=== PATIENT | female | born 1980 | race African-American/Black ===

== ENCOUNTER 2018-10-20 10:55 | Observation (INO) | payer BC, OTHER ==
--- NOTE | 2018-10-20 11:23 | ER Document Report ---
ED Medical Screen (RME) - General Chief Complaint: Abnormal Lab Results Stated Complaint: ABNORMAL LABS Time Seen by Provider: 10/20/18 11:19 Primary Care Provider: MEMO PALACIOS MD [Primary Care Provider] - Follow up as needed Mode of Arrival: Ambulatory Information source: Patient Notes: Patient is a 38-year-old female with past medical history of anemia who presents to the emergency department with complaints of abnormal labs. Patient reports she had labs drawn on Wednesday [facility], states they called her this morning with a low hemoglobin. She states that the hemoglobin level she believes was 6.8. Patient reports complaints of fatigue, dizziness and shortness of breath. Exam: Patient alert, awake, no distress noted. Lung sounds clear to auscultation bilaterally. I have greeted and performed a rapid initial assessment of this patient. A comprehensive ED assessment and evaluation of the patient, analysis of test results and completion of the medical decision making process will be conducted by additional ED providers. Dictation of this chart was performed using voice recognition software; therefore, there may be some unintended grammatical errors. TRAVEL OUTSIDE OF THE [place] IN LAST 30 DAYS: No - Related Data Allergies/Adverse Reactions: acetaminophen [From Vicodin] Allergy (Verified 10/20/18 10:56) cephalexin [From Keflex] Allergy (Verified 10/20/18 10:56) hydrocodone [From Vicodin] Allergy (Verified 10/20/18 10:56) Physical Exam - Vital signs Vitals: Temp Pulse Resp BP Pulse Ox 98.7 F 100 16 151/82 H 100 10/20/18 11:04 10/20/18 11:04 10/20/18 11:04 10/20/18 11:04 10/20/18 11:04 Course - Vital Signs Vital signs: Temp Pulse Resp BP Pulse Ox 98.7 F 100 16 151/82 H 100 10/20/18 11:04 10/20/18 11:04 10/20/18 11:04 10/20/18 11:04 10/20/18 11:04 Doctor's Discharge - Discharge Referrals: MEMO PALACIOS MD [Primary Care Provider] - Follow up as needed
[2018-10-20 11:59] LABS: ABSOLUTE BASOPHILS # (AUTO) 0.1 10^3/uL (0.0-0.2); ABSOLUTE EOSINOPHILS # (AUTO) 0.2 10^3/uL (0.0-0.6); ABSOLUTE LYMPHOCYTES (AUTO) 1.7 10^3/uL (0.5-4.7); ABSOLUTE MONOCYTES (AUTO) 0.4 10^3/uL (0.1-1.4); ABSOLUTE NEUT (AUTO) 6.8 10^3/uL (1.7-8.2); BASOPHILS % (AUTO) 0.6 % (0-2); EOSINOPHILS % (AUTO) 1.7 % (0-6); HEMATOCRIT 22.2 % (36.0-47.0); LYMPHOCYTES % (AUTO) 18.8 % (13-45); MEAN CORPUSCULAR HEMOGLOBIN 17.1 pg (27.0-33.4); MEAN CORPUSCULAR HGB CONC 28.4 g/dL (32.0-36.0); MONOCYTES % (AUTO) 4.2 % (3-13); PLATELET COUNT 388 10^3/uL (150-450); RED BLOOD COUNT 3.69 10^6/uL (3.72-5.28); RED CELL DISTRIBUTION WIDTH 20.4 % (11.5-14.0); SEGMENTED NEUTROPHILS % (AUTO) 74.7 % (42-78); TOTAL CELLS COUNTED % (AUTO) 100 %; WHITE BLOOD COUNT 9.1 10^3/uL (4.0-10.5)
[2018-10-20 12:13] LABS: MEAN CORPUSCULAR VOLUME 60 fl (80-97)
[2018-10-20 12:31] LABS: ALANINE AMINOTRANSFERASE 26 U/L (9-52); ALBUMIN 3.7 g/dL (3.5-5.0); ALKALINE PHOSPHATASE 100 U/L (38-126); ANION GAP 11 (5-19); ASPARTATE AMINO TRANSFERASE 16 U/L (14-36); BILIRUBIN,DIRECT 0.3 mg/dL (0.0-0.4); BILIRUBIN,TOTAL 0.3 mg/dL (0.2-1.3); BLOOD UREA NITROGEN 14 mg/dL (7-20); CALCIUM 8.8 mg/dL (8.4-10.2); CARBON DIOXIDE 24 mmol/L (22-30); CHLORIDE 105 mmol/L (98-107); GLUCOSE 148 mg/dL (75-110); POTASSIUM 4.1 mmol/L (3.6-5.0); SODIUM 139.6 mmol/L (137-145); TOTAL PROTEIN 7.1 g/dL (6.3-8.2)
[2018-10-20 12:32] LABS: ANISOCYTOSIS 2+; HYPOCHROMASIA 3+; OVALOCYTES 1+; PLATELET COMMENT ADEQUATE; POIKILOCYTOSIS 1+; POLYCHROMASIA SLIGHT; TEAR DROP CELLS SLIGHT
[2018-10-20 12:34] LABS: HEMOGLOBIN 6.3 g/dL (12.0-15.5)
[2018-10-20] MEDS ORDERED: NORMAL SALINE 250 ML IV PRN ×4 (12:36→18:46)
--- NOTE | 2018-10-20 13:00 | ER Document Report ---
Doctor's Note Notes: 10/20/18 12:59 Nursing staff called and Made me aware of hemoglobin of 6.3. Patient has still not been seen by provider in the back, orders placed for transfusion of 2 units of packed red cells.
--- NOTE | 2018-10-20 13:43 | ER Document Report ---
ED General - General Chief Complaint: Abnormal Lab Results Stated Complaint: ABNORMAL LABS Time Seen by Provider: 10/20/18 11:19 Mode of Arrival: Ambulatory Notes: 38-year-old female with iron deficiency anemia, transfusions intermittently, from [place] with no primary care here presents TRAVEL OUTSIDE OF THE [place] IN LAST 30 DAYS: No - Related Data Allergies/Adverse Reactions: acetaminophen [From Vicodin] Allergy (Verified 10/20/18 10:56) cephalexin [From Keflex] Allergy (Verified 10/20/18 10:56) hydrocodone [From Vicodin] Allergy (Verified 10/20/18 10:56) Past Medical History - General Information source: Patient - Social History Smoking Status: Never Smoker Chew tobacco use (# tins/day): No Frequency of alcohol use: None Drug Abuse: None Family History: None Patient has suicidal ideation: No Patient has homicidal ideation: No Endocrine Medical History: Reports: Hx Diabetes Mellitus Type 2 Renal/ Medical History: Denies: Hx Peritoneal Dialysis Physical Exam - Vital signs Vitals: Temp Pulse Resp BP Pulse Ox 98.7 F 100 16 151/82 H 100 10/20/18 11:04 10/20/18 11:04 10/20/18 11:04 10/20/18 11:04 10/20/18 11:04 Course - Re-evaluation Re-evalutation: 10/20/18 21:21 Patient presents with symptomatic anemia. Hemoglobin is below threshold for transfusion and she is having symptoms. I ordered her 2 units of blood. I discussed with hospitalist who initially agreed to admit but then decided on his own he will evaluate the patient, recheck her after her transfusions and discharge her from the emergency department. - Vital Signs Vital signs: Temp Pulse Resp BP Pulse Ox 98.7 F 96 20 156/93 H 99 10/20/18 19:26 10/20/18 17:00 10/20/18 19:26 10/20/18 19:26 10/20/18 19:26 - Laboratory Result Diagrams: 10/20/18 18:02 10/20/18 11:44 Laboratory results interpreted by me: 10/20/18 10/20/18 10/20/18 11:44 11:44 11:44 RBC 3.69 L Hgb 6.3 L Hct 22.2 L MCV 60 L MCH 17.1 L MCHC 28.4 L RDW 20.4 H Glucose 148 H Crossmatch See Detail Discharge - Discharge Clinical Impression: Symptomatic anemia Condition: Fair Disposition: ADMITTED OBSERVATION Admitting Provider: Isac (Hospitalist) Unit Admitted: Medical Floor
[2018-10-20] MEDS ORDERED: ACETAMINOPHEN 325 MG TABLET PO PRN (14:38)
[2018-10-20] MEDS ORDERED: ONDANSETRON HCL INJ/PF 4 MG/2 ML SDV IV PRN (14:38)
--- NOTE | 2018-10-20 14:38 | H&P/Discharge Summary ---
Discharge Summary Admission Date/PCP: 10/20/2018 Discharge Date: 10/20/18 Resuscitation Status: Full Code - Discharge Diagnosis (1) Symptomatic anemia Is this a current diagnosis for this admission?: Yes Summary: 38-year-old female with history of chronic symptomatic anemia with history of multiple blood transfusions came to the emergency room today with complaints of increasing shortness of breath for the last few days associated with the chest tightness. Patient is given the history of uterine cancer follows with with oncologist in [place] she does not want to see anybody during this hospital stay for this problem and she is also given the history of heavy periods. She does expressing desire to go home after blood transfusions. Discussed the plan with the ER physician Dr. Yoan Anthony he agreed with the plan. Plan is patient is going to receive 2 units of PRBC in the ER and will check 2 hours posttransfusion CBC if it is reasonable will discharge her today. Allergies/Adverse Reactions: acetaminophen [From Vicodin] Allergy (Verified 10/20/18 10:56) cephalexin [From Keflex] Allergy (Verified 10/20/18 10:56) hydrocodone [From Vicodin] Allergy (Verified 10/20/18 10:56) History of Present Illness Admission Date/PCP: 10/20/2018 Patient complains of: Shortness of breath associated with the dizziness. History of Present Illness: TICO PEDRO is a 38 year old female history of diabetes mellitus, obesity, uterine cancer, multiple blood transfusions, removal of the right ovarian cyst a few years ago followed by necrotizing fasciitis with multiple abdominal surgeries came to the emergency room with complaints of increasing shortness of breath and dizziness. She went to the [facility] [place] and they did a hemoglobin found it was low sent to the ER for further evaluation in the emergency room hemoglobin is 6.4. Patient expressing desire to go home after blood transfusions today. Past Medical History Endocrine Medical History: Reports: Diabetes Mellitus Type 2 Malignancy Medical History: Reports: Other - Uterine cancer Hematology: Reports: Anemia Past Surgical History Past Surgical History: Reports: Other - Removal of the right ovarian cyst, history of miscarriage s/p fasitis Social History Information Source: Patient Smoking Status: Never Smoker Frequency of Alcohol Use: Rare Hx Recreational Drug Use: No - Advance Directive Resuscitation Status: Full Code Family History Parental Family History Reviewed: Yes - Family history of diabetes mellitus Children Family History Reviewed: Yes Sibling(s) Family History Reviewed.: Yes Review of Systems Constitutional: PRESENT: headache(s), other - Dizziness. ABSENT: fever(s) Eyes: ABSENT: visual disturbances Ears: ABSENT: hearing changes Nose, Mouth, and Throat: ABSENT: sore throat Cardiovascular: PRESENT: palpitations Respiratory: ABSENT: cough, hemoptysis Gastrointestinal: ABSENT: diarrhea, dysphagia, heartburn, hematemesis, h ematochezia Genitourinary: PRESENT: other - Complaining of a B. Neurological: PRESENT: dizziness. ABSENT: abnormal gait, abnormal speech, confusion, focal weakness, syncope Psychiatric: ABSENT: anxiety, depression, homidical ideation, suicidal ideation Physical Exam Vital Signs: Temp Pulse Resp BP Pulse Ox 98.7 F 100 16 151/82 H 100 10/20/18 11:04 10/20/18 11:04 10/20/18 11:04 10/20/18 11:04 10/20/18 13:01 Intake & Output 10/19/18 10/20/18 10/21/18 06:59 06:59 06:59 Weight 124.9 kg General appearance: PRESENT: no acute distress, obese Head exam: PRESENT: atraumatic Eye exam: PRESENT: PERRLA Neck exam: ABSENT: carotid bruit, JVD, lymphadenopathy, thyromegaly Respiratory exam: PRESENT: clear to auscultation nestor. ABSENT: rales, rhonchi, wheezes Cardiovascular exam: PRESENT: tachycardia GI/Abdominal exam: PRESENT: normal bowel sounds, soft. ABSENT: distended, guarding, mass, organolmegaly, rebound, tenderness Extremities exam: PRESENT: full ROM. ABSENT: calf tenderness, clubbing, pedal edema Neurological exam: PRESENT: alert, awake, oriented to person, oriented to place, oriented to time, oriented to situation, CN II-XII grossly intact. ABSENT: motor sensory deficit Psychiatric exam: PRESENT: appropriate affect, normal mood. ABSENT: homicidal ideation, suicidal ideation Results Laboratory Results: 10/20/18 11:44 10/20/18 11:44 10/20/18 10/20/18 10/20/18 11:44 11:44 11:44 WBC 9.1 RBC 3.69 L Hgb 6.3 L Hct 22.2 L MCV 60 L MCH 17.1 L MCHC 28.4 L RDW 20.4 H Plt Count 388 Seg Neutrophils % 74.7 Lymphocytes % 18.8 Monocytes % 4.2 Eosinophils % 1.7 Basophils % 0.6 Absolute Neutrophils 6.8 Absolute Lymphocytes 1.7 Absolute Monocytes 0.4 Absolute Eosinophils 0.2 Absolute Basophils 0.1 Sodium 139.6 Potassium 4.1 Chloride 105 Carbon Dioxide 24 Anion Gap 11 BUN 14 Creatinine 0.81 Est GFR ( Amer) > 60 Est GFR (Non-Af Amer) > 60 Glucose 148 H Calcium 8.8 Total Bilirubin 0.3 AST 16 ALT 26 Alkaline Phosphatase 100 Total Protein 7.1 Albumin 3.7 Blood Type O POSITIVE Antibody Screen NEGATIVE Qualifiers - * PATIENT BEING DISCHARGED WITH ANY OF THE FOLLOWING DIAGNOSIS: No VTE patient discharged on overlapping Therapy?: No Assessment & Plan - Time Time Spent: 50 to 70 Minutes Medications reviewed and adjusted accordingly: Yes Anticipated dischagre: Home
[2018-10-20 18:28] LABS: ABSOLUTE EOSINOPHILS # (AUTO) 0.1 10^3/uL (0.0-0.6); ABSOLUTE LYMPHOCYTES (AUTO) 2.2 10^3/uL (0.5-4.7); ABSOLUTE MONOCYTES (AUTO) 0.9 10^3/uL (0.1-1.4); ABSOLUTE NEUT (AUTO) 8.4 10^3/uL (1.7-8.2); BASOPHILS % (AUTO) 0.2 % (0-2); HEMATOCRIT 25.2 % (36.0-47.0); LYMPHOCYTES % (AUTO) 18.8 % (13-45); MEAN CORPUSCULAR HEMOGLOBIN 19.3 pg (27.0-33.4); MEAN CORPUSCULAR HGB CONC 30.1 g/dL (32.0-36.0); MONOCYTES % (AUTO) 7.8 % (3-13); PLATELET COUNT 359 10^3/uL (150-450); RED BLOOD COUNT 3.94 10^6/uL (3.72-5.28); RED CELL DISTRIBUTION WIDTH 26.4 % (11.5-14.0); SEGMENTED NEUTROPHILS % (AUTO) 72.2 % (42-78); TOTAL CELLS COUNTED % (AUTO) 100 %; WHITE BLOOD COUNT 11.6 10^3/uL (4.0-10.5)
[2018-10-20 18:39] LABS: MEAN CORPUSCULAR VOLUME 64 fl (80-97)
[2018-10-20 18:42] LABS: ANISOCYTOSIS 3+; HYPOCHROMASIA 2+; PLATELET COMMENT ADEQUATE; POIKILOCYTOSIS 1+; TOXIC GRANULATION SLIGHT
[2018-10-20 18:44] LABS: HEMOGLOBIN 7.6 g/dL (12.0-15.5)
[2018-10-20] MEDS: FAMOTIDINE 20 MG TABLET PO SCH ×2 (19:21→23:19)
[2018-10-20] MEDS: DOCUSATE SODIUM 100 MG CAPSULE PO SCH (19:21)
[2018-10-20] MEDS: FERROUS SULFATE 325 MG TABLET PO SCH (19:28)
[2018-10-20] MEDS: ASCORBIC ACID 500 MG TABLET PO SCH (19:28)
[2018-10-21 06:45] LABS: ALANINE AMINOTRANSFERASE 24 U/L (9-52); ALBUMIN 3.6 g/dL (3.5-5.0); ALKALINE PHOSPHATASE 97 U/L (38-126); ANION GAP 9 (5-19); ASPARTATE AMINO TRANSFERASE 25 U/L (14-36); BILIRUBIN,DIRECT 0.3 mg/dL (0.0-0.4); BILIRUBIN,TOTAL 0.6 mg/dL (0.2-1.3); BLOOD UREA NITROGEN 14 mg/dL (7-20); CALCIUM 8.3 mg/dL (8.4-10.2); CARBON DIOXIDE 23 mmol/L (22-30); CHLORIDE 106 mmol/L (98-107); GLUCOSE 140 mg/dL (75-110); SODIUM 138.2 mmol/L (137-145); TOTAL PROTEIN 7.2 g/dL (6.3-8.2)
[2018-10-21 07:46] LABS: ABSOLUTE EOSINOPHILS # (AUTO) 0.1 10^3/uL (0.0-0.6); ABSOLUTE LYMPHOCYTES (AUTO) 2.1 10^3/uL (0.5-4.7); ABSOLUTE MONOCYTES (AUTO) 0.5 10^3/uL (0.1-1.4); ABSOLUTE NEUT (AUTO) 9.5 10^3/uL (1.7-8.2); BASOPHILS % (AUTO) 0.2 % (0-2); EOSINOPHILS % (AUTO) 0.6 % (0-6); HEMATOCRIT 36.9 % (36.0-47.0); LYMPHOCYTES % (AUTO) 17.2 % (13-45); MEAN CORPUSCULAR HEMOGLOBIN 21.1 pg (27.0-33.4); MEAN CORPUSCULAR HGB CONC 31.3 g/dL (32.0-36.0); MONOCYTES % (AUTO) 4.1 % (3-13); PLATELET COUNT 275 10^3/uL (150-450); RED BLOOD COUNT 5.46 10^6/uL (3.72-5.28); RED CELL DISTRIBUTION WIDTH 27.7 % (11.5-14.0); SEGMENTED NEUTROPHILS % (AUTO) 77.9 % (42-78); TOTAL CELLS COUNTED % (AUTO) 100 %; WHITE BLOOD COUNT 12.2 10^3/uL (4.0-10.5)
[2018-10-21 07:48] LABS: HEMOGLOBIN 11.5 g/dL (12.0-15.5); MEAN CORPUSCULAR VOLUME 68 fl (80-97)
[2018-10-21 07:52] LABS: ANISOCYTOSIS 3+; HYPOCHROMASIA 2+; OVALOCYTES 1+; PLATELET LARGE PRESENT; POIKILOCYTOSIS SLIGHT; POLYCHROMASIA 1+; TEAR DROP CELLS SLIGHT
[2018-10-21 07:53] LABS: PLATELET COMMENT ADEQUATE
[2018-10-21] MEDS: DOCUSATE SODIUM 100 MG CAPSULE PO SCH (12:19)
[2018-10-21] MEDS: FAMOTIDINE 20 MG TABLET PO SCH (12:20)
[2018-10-21] MEDS: ASCORBIC ACID 500 MG TABLET PO SCH (12:20)
[2018-10-21] MEDS: FERROUS SULFATE 325 MG TABLET PO SCH (12:20)
[2018-10-21 13:08] VITALS: BP 146/103
--- NOTE | 2018-10-25 09:25 | PDOC DISCHARGE SUMMARY ---
General - Admit/Disc Date/PCP Admission Date/Primary Care Provider: 10/20/18 14:29 Discharge Date: 10/21/18 - Discharge Diagnosis (1) Symptomatic anemia Is this a current diagnosis for this admission?: Yes - Additional Information Resuscitation Status: Full Code Discharge Diet: As Tolerated Discharge Activity: Activity As Tolerated Home Medications: Ascorbic Acid [Vitamin C 500 mg Tablet] 500 mg PO BID 10/20/18 Ferrous Sulfate [Feosol 325 mg Tablet] 325 mg PO BID 10/20/18 History of Present Illness History of Present Illness: 38-year-old female with history of chronic symptomatic anemia with history of multiple blood transfusions came to the emergency room today with complaints of increasing shortness of breath for the last few days associated with the chest tightness. Patient is given the history of uterine cancer follows with with oncologist in [place] she does not want to see anybody during this hospital stay for this problem and she is also given the history of heavy periods. She does expressing desire to go home after blood transfusions. Discussed the plan with the ER physician Dr. Yoan Anthony he agreed with the plan. Plan is patient is going to receive 2 units of PRBC in the ER and will check 2 hours posttransfusion CBC if it is reasonable will discharge her today. Hospital Course Hospital Course: 38 y.o. F with a PMH of chronic symptomatic anemia and uterine cancer. She presented to [facility] with chest tightness and SOB. Her initial Hgb was 6.3, for which she received 2U PRBC. On the post transfusion CBC her Hgb only increased to 7.3, so she was admitted overnight and received another 2U PRBC. The following morning her Hgb had increased to 11.4. The patient expressed a desire to be discharged home, she did not want to be seen by a HEME/ONC phsyician since she already sees a specialist at [facility]. 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 Physical Exam Vital Signs: Temp Pulse Resp BP Pulse Ox 98.1 F 78 18 146/103 H 100 10/21/18 13:07 10/21/18 13:07 10/21/18 13:07 10/21/18 13:07 10/21/18 13:07 General appearance: PRESENT: morbidly obese Head exam: PRESENT: atraumatic, normocephalic Eye exam: PRESENT: conjunctiva pink, EOMI, PERRLA. ABSENT: scleral icterus Ear exam: PRESENT: normal external ear exam Mouth exam: PRESENT: moist, tongue midline Neck exam: ABSENT: carotid bruit, JVD, lymphadenopathy, thyromegaly Respiratory exam: PRESENT: clear to auscultation nestor. ABSENT: rales, rhonchi, wheezes Cardiovascular exam: PRESENT: RRR. ABSENT: diastolic murmur, rubs, systolic murmur Pulses: PRESENT: normal dorsalis pedis pul Vascular exam: PRESENT: normal capillary refill GI/Abdominal exam: PRESENT: normal bowel sounds, soft. ABSENT: distended, guarding, mass, organolmegaly, rebound, tenderness Rectal exam: PRESENT: deferred Extremities exam: PRESENT: full ROM. ABSENT: calf tenderness, clubbing, pedal edema Neurological exam: PRESENT: alert, awake, oriented to person, oriented to place, oriented to time, oriented to situation Psychiatric exam: PRESENT: appropriate affect, normal mood. ABSENT: homicidal ideation, suicidal ideation Skin exam: PRESENT: dry, intact, warm. ABSENT: cyanosis, rash Results Laboratory Results: 10/21/18 06:14 10/21/18 06:14 Status: Imported from [facility] Qualifiers - * PATIENT BEING DISCHARGED WITH ANY OF THE FOLLOWING DIAGNOSIS: No
== END 2018-10-21 14:11 | disposition home or self-care (01) ==
LOC: ER 10:55 → EH 14:29 → 2N 20:00
PROVIDERS: ADMIT Internal Medicine; ATTEND Internal Medicine
PROC: 30233N1 Transfusion of Nonautologous Red Blood Cells into Peripheral Vein, Percutaneous Approach (ICD-10-PCS; principal; 2018-10-20)
PROC: 30233N1 Transfusion of Nonautologous Red Blood Cells into Peripheral Vein, Percutaneous Approach (ICD-10-PCS; 2018-10-21)
DX: D64.9 Anemia, unspecified (principal); E66.01 Morbid (severe) obesity due to excess calories; Z85.42 Personal history of malignant neoplasm of other parts of uterus; Z98.890 Other specified postprocedural states; Z87.42 Personal history of other diseases of the female genital tract; Z86.39 Personal history of other endocrine, nutritional and metabolic disease; Z83.3 Family history of diabetes mellitus
CPT/HCPCS: 99284; 86900; 86901; 36415 ×2; 36430; 86850; 82962 ×2; 83735; 85025 ×2; 80053 ×2; 86920; G0378 ×3; P9016 ×2